=== PATIENT | male | born 1980 | race American Indian/Alaskan Native ===

== ENCOUNTER 2018-06-13 13:07 | Emergency (ER) | payer OTHER ==
[2018-06-13 13:10] VITALS: BMI 45.4
[2018-06-13 13:14] VITALS: TEMP 98.9
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
[2018-06-13 13:55] VITALS: BP 116/76; PULSE 80; RESP 17; O2SAT 100
== END 2018-06-13 13:55 | disposition home or self-care (01) ==
LOC: ED 13:07
DX: M54.2 Cervicalgia (principal); M54.5 Low back pain; V89.2XXA Person injured in unspecified motor-vehicle accident, traffic, initial encounter; E11.9 Type 2 diabetes mellitus without complications